=== PATIENT | male | born 1995 | race Caucasian/White ===

== ENCOUNTER 2019-02-12 20:01 | Emergency (ER) | payer SELFPAY, OTHER ==
[2019-02-12] MEDS: IBUPROFEN 800 MG TAB PO (20:50)
== END 2019-02-12 21:34 | disposition home or self-care (01) ==
LOC: FTE 20:01
DX: S63.641A Sprain of metacarpophalangeal joint of right thumb, initial encounter (principal); W23.0XXA Caught, crushed, jammed, or pinched between moving objects, initial encounter; Y92.89 Other specified places as the place of occurrence of the external cause
CPT/HCPCS: 29125; 99282-25